=== PATIENT | male | born 1995 | race Caucasian/White ===

== ENCOUNTER 2017-11-15 16:25 | Emergency (ER) | payer OTHER, BC ==
[2017-11-15] MEDS ORDERED: Acetaminophen 325 MG Tab PO ONE (16:47)
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
[2017-11-15] MEDS ORDERED: Ketorolac 60 MG/2 ML SDV IM ONE (18:20)
--- NOTE | 2017-11-16 07:10 | CT ---
Head CT Technique: Multiple axial sections through the brain were obtained. Intravenous contrast was not utilized. Comparison: No prior intracranial imaging. Findings: Ventricles along with basal cisterns and sulci over the convexities appear within normal limits for the patient's age. No abnormal parenchymal densities are seen. No evidence of intracranial hemorrhage. No midline shift or mass effect is seen. Opacified left sphenoid sinus is seen. Other visualized sinuses are clear. No acute calvarial abnormality is seen. Impression: 1. 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 2. No acute intracranial abnormality is identified. Diagnostic code #2 Agree with preliminary report issued by [employer] ([employer] preliminary report dictated on 11/15/17, 6:09 PM Central Time)
== END 2017-11-15 18:35 | disposition home or self-care (01) ==
LOC: JD.ED 16:25
DX: S06.0X0A Concussion without loss of consciousness, initial encounter (principal); V43.92XA Unspecified car occupant injured in collision with other type car in traffic accident, initial encounter; Y92.410 Unspecified street and highway as the place of occurrence of the external cause
CPT/HCPCS: 36415; 70450; 80053; 85025; 99284; A9270; 99283

== ENCOUNTER 2020-11-16 13:44 | Emergency (ER) | payer BC ==
[2020-11-16] MEDS ORDERED: Ondansetron 4 MG/2 ML SDV IVPUSH ONE (14:42)
[2020-11-16] MEDS ORDERED: Sodium Chloride 0.9% 1,000 ML IV ONE (14:42)
--- NOTE | 2020-11-16 15:18 | EDM.PDOC ---
ED HPI GENERAL MEDICAL PROBLEM - General Chief Complaint: Abdominal Pain Stated Complaint: VOMITING/DIARRHEA/ABD PAIN Time Seen by Provider: 11/16/20 14:17 Source of Information: Reports: Patient History Limitations: Reports: No Limitations - History of Present Illness INITIAL COMMENTS - FREE TEXT/NARRATIVE: 25-year-old male presents to the emergency department today with complaints of nausea, vomiting, abdominal pain. Patient states that 5 days ago he developed nausea and vomiting and he states he thought this was just a stomach flu as he got better after 24 hours. However, he states he woke this morning with nausea, vomiting, generalized abdominal cramping type of pain, and diarrhea. He describes the abdominal pain as cramping. And he states he has vomited numerous times since this morning. He has also had several diarrhea stools and he denies any blood or mucus noted in the stool. Denies any fever, chills or headache or cough associated with this. Treatments CASTING INSPECTOR: Reports: Other (see below) Other Treatments CASTING INSPECTOR: none Abdomen Pain Score (Numeric/FACES): 8 - Related Data Allergies Allergy/AdvReac Type Severity Reaction Status Date / Time red dye Allergy Airway Uncoded 11/16/20 14:06 Tightness Home Meds: Home Meds Ondansetron [Zofran ODT] 4 mg PO Q6H PRN #12 tab.dis 11/16/20 [Rx] Past Medical History - Past Health History Medical/Surgical History: Denies Medical/Surgical History Psychiatric History: Reports: Anxiety, Depression - Infectious Disease History Infectious Disease History: Reports: Influenza Social & Family History - Family History Family Medical History: No Pertinent Family History - Tobacco Use Tobacco Use Status *Q: Current Every Day Tobacco User Years of Tobacco use: 4 Packs/Tins Daily: 1 - Caffeine Use Caffeine Use: Reports: Soda, Tea - Recreational Drug Use Recreational Drug Use: No ED ROS GENERAL - Review of Systems Review Of Systems: See Below Constitutional: Denies: Fever, Chills, Decreased Appetite HEENT: Reports: No Symptoms Respiratory: Reports: No Symptoms Cardiovascular: Reports: No Symptoms Endocrine: Reports: No Symptoms GI/Abdominal: Reports: Abdominal Pain (generalized abdominal cramping), Diarrhea, Nausea, Vomiting. Denies: Constipation : Reports: No Symptoms Musculoskeletal: Reports: No Symptoms Skin: Reports: No Symptoms Neurological: Reports: No Symptoms Psychiatric: Reports: No Symptoms Hematologic/Lymphatic: Reports: No Symptoms Immunologic: Reports: No Symptoms ED EXAM, GI/ABD - Physical Exam Exam: See Below Exam Limited By: No Limitations General Appearance: Alert, WD/WN, Mild Distress Ears: Normal External Exam, Hearing Grossly Normal Nose: Normal Inspection Throat/Mouth: Normal Inspection, Normal Lips, Normal Voice, No Airway Compromise Head: Atraumatic, Normocephalic Neck: Normal Inspection, Supple, Non-Tender, Full Range of Motion Respiratory/Chest: No Respiratory Distress, Lungs Clear, Normal Breath Sounds, No Accessory Muscle Use, Chest Non-Tender Cardiovascular: Normal Peripheral Pulses, Regular Rate, Rhythm, No Edema, No Murmur GI/Abdominal Exam: Normal Bowel Sounds, Soft, No Distention, Tender (generalized tenderness with palpation) (Male) Exam: Deferred Rectal (Males) Exam: Deferred Back Exam: Normal Inspection, Full Range of Motion Extremities: Normal Inspection, Normal Range of Motion, Non-Tender, No Pedal Edema Neurological: Alert, Oriented, Normal Cognition Psychiatric: Normal Affect, Normal Mood Skin Exam: Warm, Dry, Intact, Normal Color, No Rash Lymphatic: No Adenopathy Course - Vital Signs Text/Narrative:: 25-year-old male who awoke this morning with nausea, vomiting, diarrhea and abdominal cramping. He denies any fever or chills. He denies any headache or voiding issues. Patient states he is otherwise healthy. I have ordered labs, IV fluids as he is likely dehydrated, Zofran, and a flatplate of the abdomen. Last Recorded V/S: Last Vital Signs Temp 95.9 F L 11/16/20 14:04 Pulse 89 11/16/20 14:04 Resp 20 11/16/20 14:04 BP 156/101 H 11/16/20 14:04 Pulse Ox 95 11/16/20 14:04 - Orders/Labs/Meds Orders: Active Orders 24 hr Category Date Time Status Abdomen 1V Flat [CR] Stat Exams 11/16/20 14:42 Taken Labs: Laboratory Tests 11/16/20 11/16/20 11/16/20 Range/Units 14:25 14:25 14:25 WBC 10.03 H (4.23-9.07) K/mm3 RBC 5.49 (4.63-6.08) M/mm3 Hgb 15.5 (13.7-17.5) gm/dl Hct 46.2 (40.1-51.0) % MCV 84.2 (79.0-92.2) fl MCH 28.2 (25.7-32.2) pg MCHC 33.5 (32.2-35.5) g/dl RDW Std Deviation 40.9 (35.1-43.9) fL Plt Count 279 (163-337) K/mm3 MPV 8.7 L (9.4-12.3) fl Neut % (Auto) 72.6 H (34.0-67.9) % Lymph % (Auto) 18.5 L (21.8-53.1) % [place] % (Auto) 5.0 L (5.3-12.2) % Eos % (Auto) 2.8 (0.8-7.0) Baso % (Auto) 0.3 (0.1-1.2) % Neut # (Auto) 7.28 H (1.78-5.38) K/mm3 Lymph # (Auto) 1.86 (1.32-3.57) K/mm3 [place] # (Auto) 0.50 (0.30-0.82) K/mm3 Eos # (Auto) 0.28 (0.04-0.54) K/mm3 Baso # (Auto) 0.03 (0.01-0.08) K/mm3 Manual Slide Review Normal smear Sodium 142 (136-145) mEq/L Potassium 4.0 (3.5-5.1) mEq/L Chloride 104 (98-107) mEq/L Carbon Dioxide 30 (21-32) mEq/L Anion Gap 12.0 (5-15) BUN 7 (7-18) mg/dL Creatinine 1.1 (0.7-1.3) mg/dL Est Cr Clr Drug Dosing 123.76 mL/min Estimated GFR (MDRD) > 60 (>60) mL/min BUN/Creatinine Ratio 6.4 L (14-18) Glucose 105 (74-106) mg/dL Calcium 9.0 (8.5-10.1) mg/dL Magnesium 1.9 (1.8-2.4) mg/dl Total Bilirubin 1.6 H (0.2-1.0) mg/dL AST 67 H (15-37) U/L ALT 160 H (16-63) U/L Alkaline Phosphatase 85 (46-116) U/L C-Reactive Protein 1.2 H* (<1.0) mg/dL Total Protein 7.8 (6.4-8.2) g/dl Albumin 3.9 (3.4-5.0) g/dl Globulin 3.9 gm/dL Albumin/Globulin Ratio 1.0 (1-2) Lipase 106 (73-393) U/L Meds: Medications Discontinued Medications Generic Name Dose Route Start Last Admin Trade Name Freq PRN Reason Stop Dose Admin Hyoscyamine 0.125 mg 11/16/20 15:23 11/16/20 15:57 Hyoscyamine 0.125 Mg Tab.Sl SL 11/16/20 15:24 0.125 mg ONETIME ONE Administration Sodium Chloride 1,000 mls @ 999 mls/hr 11/16/20 14:42 11/16/20 15:33 Normal Saline IV 11/16/20 15:42 999 mls/hr ONETIME ONE Administration Ondansetron HCl 4 mg 11/16/20 14:42 11/16/20 15:33 Ondansetron 4 Mg/2 Ml Sdv IVPUSH 11/16/20 14:43 4 mg ONETIME ONE Administration - Re-Assessments/Exams Free Text/Narrative Re-Assessment/Exam: 11/16/20 16:33 Nothing acute is appreciated on flatplate of the abdomen. 11/16/20 16:35 Hematology reveals a WBC of 10.03, hemoglobin 15.5, hematocrit 46.2, sodium 142, potassium 4.0, anion gap 12.0, BUN 7, creatinine 1.1, glucose 105, magnesium 1.9, total bili 1.6, AST 67, ALT 160, alk phos 85, C-reactive protein 1.2, lipase 106. Patient reports feeling much better after receiving a liter of IV fluids, Zofran and Levsin. He states his abdominal pain is completely resolved. Patient will be discharged home with a prescription for Zofran and recommendations that he drink clear liquids for the next 24 hours slowly advancing to a bland diet. Departure - Departure Time of Disposition: 16:36 Disposition: Home, Self-Care 01 Condition: Good Clinical Impression: Gastroenteritis - Discharge Information Prescriptions: Ondansetron [Zofran ODT] 4 mg PO Q6H PRN #12 tab.dis PRN Reason: Nausea/Vomiting Referrals: Vitaly Ortega MD [Primary Care Provider] - Forms: ED Department Discharge Additional Instructions: You were seen in the emergency department today with complaints of nausea, vomiting, diarrhea and abdominal pain. He received a liter of IV fluids and nausea medication. Labs were completed and these were essentially unremarkable however your liver studies were elevated. I do recommend that you follow-up with your primary care provider regarding this. There was no sign of infection noted in your lab work. And your x-ray was unremarkable. I have sent prescription for Zofran, a nausea medication, to the pharmacy. This medication can be placed under your tongue and allow to dissolve. You may take this medication every 6 hours as needed for nausea or vomiting. Recommend you wait at least 30 minutes prior to eating or drinking after taking the medication. Recommend that for the next 24 hours you stick to clear liquids only and then you may advanced to a bland diet. This consists of toast, oatmeal, rice, bananas, and applesauce. Should your condition worsen or change, do not hesitate returning to the emergency department. Sepsis Event Note (ED) - Evaluation Sepsis Screening Result: No Definite Risk - Focused Exam Vital Signs: Vital Signs Temp Pulse Resp BP Pulse Ox 11/16/20 14:04 95.9 F L 89 20 156/101 H 95 - My Orders Last 24 Hours: My Active Orders 11/16/20 14:42 Abdomen 1V Flat [CR] Stat - Assessment/Plan Last 24 Hours: My Active Orders 11/16/20 14:42 Abdomen 1V Flat [CR] Stat
[2020-11-16] MEDS ORDERED: Hyoscyamine 0.125 MG Tab.SL SL ONE (15:23)
--- NOTE | 2020-11-17 07:23 | CR ---
Abdomen: Supine view of the abdomen were obtained. Comparison: No previous study. Diffusely dilated small bowel loops are seen. Distal small bowel does not appear to be dilated. Findings are suspicious for mid small bowel obstruction. Calcification is noted within the left pelvis which is compatible with phlebolith. No acute bony abnormality is appreciated. Impression: 1. Findings suspicious for possible mid small bowel obstruction. Diagnostic code #3
== END 2020-11-16 16:45 | disposition home or self-care (01) ==
LOC: JD.ED 13:44
DX: K52.9 Noninfective gastroenteritis and colitis, unspecified (principal); Z91.048 Other nonmedicinal substance allergy status; Z72.0 Tobacco use
CPT/HCPCS: 36415; 74018; 80053; 83690; 83735; 85025; 86140; 96374; 99284; A9270; J2405; J7030; 99283

== ENCOUNTER 2022-05-31 14:30 | Emergency (ER) | payer MEDICAID | END 2022-05-31 17:22 | disposition home or self-care (01) | LOC: JD.ED 14:30 | DX: J35.1 Hypertrophy of tonsils (principal); R09.81 Nasal congestion; E66.9 Obesity, unspecified; Z68.41 Body mass index [BMI] 40.0-44.9, adult; Z91.041 Radiographic dye allergy status | CPT/HCPCS: 99283 ==

== ENCOUNTER 2023-07-26 06:54 | Emergency (ER) | payer MEDICAID ==
[2023-07-26] MEDS ORDERED: Ketorolac 60 MG/2 ML SDV IM ONE (07:11)
[2023-07-26] MEDS ORDERED: Ondansetron 4 MG Tab.DIS PO ONE (07:29)
[2023-07-26] MEDS ORDERED: Acetaminophen/oxyCODONE 325-5 MG Tab PO ONE (07:29)
== END 2023-07-26 08:07 | disposition home or self-care (01) ==
LOC: JD.ED 06:54
DX: S76.811A Strain of other specified muscles, fascia and tendons at thigh level, right thigh, initial encounter (principal); Z91.048 Other nonmedicinal substance allergy status; Z91.041 Radiographic dye allergy status; X50.1XXA Overexertion from prolonged static or awkward postures, initial encounter; E66.9 Obesity, unspecified; Z68.42 Body mass index [BMI] 45.0-49.9, adult
CPT/HCPCS: 73502; 96372; 99284; A9270; J1885; 99283